=== PATIENT | female | born 2000 | race Caucasian/White ===

== ENCOUNTER 2018-09-30 07:10 | Inpatient (IN) | payer OTHER ==
[~2018-09-30] VITALS: Ht 162.6 cm; Wt 99.8 kg
[2018-09-30] MEDS ORDERED: NALBUPHINE HCL 10 MG/ML AMP IVP PRN (08:00)
[2018-09-30] MEDS ORDERED: AMPICILLIN SODIUM 2 GM in NS 100 ML IV ONE (08:00)
[2018-09-30] MEDS ORDERED: LR 1,000 ML IV ONE (08:00)
[2018-09-30] MEDS ORDERED: LR 1,000 ML IV SCH (08:00)
[2018-09-30] MEDS ORDERED: TERBUTALINE SULFATE 1 MG/ML VIAL SUBCUT ONE (08:00)
[2018-09-30] MEDS ORDERED: OXYTOCIN/0.9 % SODIUM CHLORIDE 1,000 ML IV SCH ×2 (08:00→16:29)
[2018-09-30 08:41] LABS: BASOPHILS % (AUTO) 0.3 % (0.0-2.0); EOSINOPHILS # (AUTO) 0.1 K/uL (0.0-0.4); EOSINOPHILS % (AUTO) 0.5 % (0.0-4.0); HEMOGLOBIN 12.5 g/dL (12.0-16.0); LYMPHOCYTES # (AUTO) 1.6 K/uL (1.0-5.5); LYMPHOCYTES % (AUTO) 13.8 % (20.5-51.5); MEAN CORPUSCULAR HEMOGLOBIN 27 pg (27-31); MEAN CORPUSCULAR HGB CONC 33 % (32-36); MEAN CORPUSCULAR VOLUME 82 fL (79.0-98.0); MONOCYTES # (AUTO) 0.6 K/uL (0.0-1.0); MONOCYTES % (AUTO) 5.6 % (1.7-9.3); NEUTROPHILS # (AUTO) 9.1 K/uL (1.8-7.7); NEUTROPHILS % (AUTO) 79.8 % (40.0-70.0); PLATELET COUNT (AUTO) 211 K/uL (130-430); RED BLOOD CELL COUNT(AUTO) 4.64 MIL/uL (4.2-6.2); RED CELL DISTRIBUTION WIDTH 14.7 % (9.0-15.0); WHITE BLOOD COUNT (AUTO) 11.4 K/uL (4.5-11.0)
[2018-09-30] MEDS ORDERED: ROPIVACAINE 40 MG/20 ML AMP EP ONE (09:00)
[2018-09-30] MEDS ORDERED: fentaNYL CITRATE/PF 100 MCG/2 ML AMP ONE ×2 (09:04→09:16)
[2018-09-30] MEDS ORDERED: ROPIVACAINE 0.2% 100 ML ONE (09:04)
[2018-09-30] MEDS ORDERED: LR 500 ML IV ONE (10:20)
[2018-09-30] MEDS ORDERED: FENT2mCg/mL-ROPIVA0.2%/NS EPID 150 ML EP SCH (10:30)
[2018-09-30] MEDS ORDERED: fentaNYL CITRATE/PF 100 MCG/2 ML AMP EP ONE (10:30)
[2018-09-30] MEDS ORDERED: ePHEDrine sulfate 50 MG/ML VIAL IVP PRN (10:30)
[2018-09-30] MEDS ORDERED: AMPICILLIN SODIUM 1 GM in NS 50 ML IV SCH (12:00)
[2018-09-30] MEDS ORDERED: OXYTOCIN 10 UNIT/ML VIAL IM ONE (15:15)
[2018-09-30] MEDS ORDERED: OXYTOCIN 10 UNIT/ML VIAL ONE (15:17)
[2018-09-30] MEDS ORDERED: OXYTOCIN/0.9 % SODIUM CHLORIDE 1,000 ML IV ONE (16:29)
[2018-09-30] MEDS ORDERED: HYDROCORTISONE 0.5%, 28.35 GM TOPICAL CREAM TP PRN (16:30)
[2018-09-30] MEDS ORDERED: RHO(D) IMMUNE GLOBULIN/MALTOSE 1500 UNITS/1.3 ML (WINHRO) IM PRN (16:30)
[2018-09-30] MEDS ORDERED: DOCUSATE SODIUM 100 MG CAPSULE PO PRN (16:30)
[2018-09-30] MEDS ORDERED: WITCH HAZEL LEAF 1 MED.PAD MED.PAD TP PRN (16:30)
[2018-09-30] MEDS ORDERED: LANOLIN 7 GM OINT. TP PRN (16:30)
[2018-09-30] MEDS ORDERED: MEASLES,MUMPS&RUBELLA VACC/PF 12500 UNIT/0.5 ML VIAL SUBQ PRN (16:30)
[2018-09-30] MEDS ORDERED: DERMOPLAST SPRAY TP PRN (16:30)
[2018-09-30] MEDS ORDERED: HYDROcodone/ACETAMIN 5-325 MG TAB (NORCO/ VICODIN) PO PRN (16:30)
[2018-09-30] MEDS ORDERED: SENNOSIDES/DOCUSATE SODIUM 1 TAB TABLET(SENOKOT-S) PO PRN (16:30)
[2018-09-30] MEDS ORDERED: DIPH-TET-PERTUS Vaccine 0.5 ML VIAL (ADACEL) I.M. PRN (16:30)
[2018-09-30] MEDS ORDERED: ANUSOL 1 EA SUPP.RECT (PREPARATION H) RC PRN (16:30)
[2018-09-30] MEDS ORDERED: OXYCODONE/ACETAMINOPHEN 5-325 TABLET PO PRN ×2 (16:30)
[2018-09-30 16:34] VITALS: BP_SYST 129
[2018-09-30] MEDS: IBUPROFEN 600 MG TABLET PO SCH ×2 (18:13→23:59)
[2018-09-30] MEDS ORDERED: TEMAZEPAM 15 MG CAPSULE PO PRN (21:00)
[2018-10-01] MEDS: IBUPROFEN 600 MG TABLET PO SCH ×2 (05:52→12:06)
[2018-10-01 07:59] LABS: HEMATOCRIT 31.6 % (36-48); HEMOGLOBIN 10.3 g/dL (12.0-16.0)
== END 2018-10-01 20:05 | disposition home or self-care (01) | DRG 560 ==
LOC: SPU 07:10 → OBSVTOIN 07:55
PROVIDERS: ADMIT Obstetrics & Gynecology; ATTEND Obstetrics & Gynecology
PROC: 10E0XZZ Delivery of Products of Conception, External Approach (ICD-10-PCS; principal; 2018-09-30)
PROC: 3E0R3BZ Introduction of Anesthetic Agent into Spinal Canal, Percutaneous Approach (ICD-10-PCS; 2018-09-30)
PROC: 00HU33Z Insertion of Infusion Device into Spinal Canal, Percutaneous Approach (ICD-10-PCS; 2018-09-30)
PROC: 0W8NXZZ Division of Female Perineum, External Approach (ICD-10-PCS; 2018-09-30)
DX: O69.81X0 Labor and delivery complicated by cord around neck, without compression, not applicable or unspecified (principal); Z37.0 Single live birth; Z3A.38 38 weeks gestation of pregnancy
CPT/HCPCS: 36415; 85018-TC; 85025; 86592; 86886; 86900; 86901; 90715; G0378; J0290; J2590; J2795; J3010; J7120

== ENCOUNTER 2020-07-25 16:19 | Observation (INO) | payer MEDICAID | END 2020-07-25 17:15 | disposition home or self-care (01) | LOC: SPU 16:19 | PROVIDERS: ADMIT Specialist; ATTEND Specialist | DX: O36.8130 Decreased fetal movements, third trimester, not applicable or unspecified (principal); Z3A.28 28 weeks gestation of pregnancy | CPT/HCPCS: 81002; G0378 ==

== ENCOUNTER 2020-08-26 15:35 | Observation (INO) | payer MEDICAID ==
[2020-08-26 17:28] LABS: BARBITURATE, URINE NEGATIVE (NEG <=200); BENZODIAZEPINE, URINE NEGATIVE (NEG <=150); CANNABINOID, URINE NEGATIVE (NEG <=50); COCAINE, URINE NEGATIVE (NEG <=150); METHAMPHETAMINES SCREEN,URINE NEGATIVE (NEG <=500); PHENCYCLIDINE SCREEN,URINE NEGATIVE (NEG <=25); URINE AMPHETAMINE NEGATIVE (NEG <=500); URINE METHADONE NEGATIVE (NEG <=200)
[2020-08-26 17:29] LABS: OPIATE, URINE NEGATIVE (NEG <=100); UR TRICYCLIC ANTIDEPRESSANTS NEGATIVE (NEG <=300); URINE OXYCODONE SCREEN NEGATIVE (NEG <=100); URINE PROPOXYPHENE SCREEN NEGATIVE (NEG <=300)
== END 2020-08-26 17:00 | disposition home or self-care (01) ==
LOC: SPU 15:35
PROVIDERS: ADMIT Obstetrics & Gynecology; ATTEND Obstetrics & Gynecology
DX: Z34.83 Encounter for supervision of other normal pregnancy, third trimester (principal); Z3A.35 35 weeks gestation of pregnancy
CPT/HCPCS: 59025; 80307; G0378

== ENCOUNTER 2020-10-12 07:31 | Observation (INO) | payer MEDICAID | END 2020-10-12 11:15 | disposition home or self-care (01) | LOC: INTOOBSV 07:31 → SPU 07:31 → OBSVTOIN 07:31 → SPU 09:46 | PROVIDERS: ADMIT Obstetrics & Gynecology; ATTEND Obstetrics & Gynecology | DX: Z34.83 Encounter for supervision of other normal pregnancy, third trimester (principal); Z3A.40 40 weeks gestation of pregnancy | CPT/HCPCS: G0378 ==